=== PATIENT | female | born 1995 | race Caucasian/White ===

== ENCOUNTER 2025-01-28 17:28 | Outpatient (CLI) | payer BC, MEDICAID, SELFPAY ==
--- NOTE | 2025-01-28 17:42 | XR_ITS ---
Examination: Biophysical profile, ultrasound Date and time of exam: January 28, 2025 1746 hrs. Indications: Diagnosis gestational diabetes Technique: Multiple transabdominal sonographic images of the pelvis abdomen obtained. Attention is directed to the breathing movement, gross body movement, amniotic fluid volume and tone. Findings: Amniotic fluid index 4.5 cm Total biophysical profile is 6of 8. breathing movement is 2. Gross body movement is 2. tone is 2. Qualitative amniotic fluid volume is 0 Impression: Biophysical profile is 6 of 8.
[2025-01-28 18:21] VITALS: BP 134/87; PULSE 71
[2025-01-28 18:26] VITALS: BP 134/87; PULSE 71; RESP 17; RESP 99; TEMP 36.6; BMI 39.5
[2025-01-28 18:36] VITALS: BP 136/88; PULSE 65
[2025-01-28 18:43] VITALS: BP 133/82; PULSE 66
== END 2025-01-28 19:30 | disposition home or self-care (01) ==
LOC: S4S1 17:36 → S4SX 17:47
PROVIDERS: Referring Provider Obstetrics & Gynecology; Visit Provider Orthopaedic Surgery Adult Reconstructive Orthopaedic Surgery
DX: O24.419 Gestational diabetes mellitus in pregnancy, unspecified control (principal); Z3A.37 37 weeks gestation of pregnancy
CPT/HCPCS: 59025; 76819

== ENCOUNTER 2025-01-29 17:03 | Outpatient (CLI) | payer OTHER, MEDICAID, SELFPAY ==
--- NOTE | 2025-01-29 17:16 | XR_ITS ---
Examination: Biophysical profile, ultrasound Date and time of exam: January 29, 2025 1731 hrs. Indications: Diagnosis gestational diabetes Technique: Multiple transabdominal sonographic images of the pelvis abdomen obtained. Attention is directed to the breathing movement, gross body movement, amniotic fluid volume and tone. Findings: Amniotic fluid index 8.8 cm Total biophysical profile is 8 of 8. breathing movement is 2. Gross body movement is 2. tone is 2. Qualitative amniotic fluid volume is 2 Impression: Biophysical profile is 8 of 8.
[2025-01-29 18:21] VITALS: BP 131/72; PULSE 80; RESP 18; RESP 99; TEMP 36.7
== END 2025-01-29 18:15 | disposition home or self-care (01) ==
LOC: S4S1 17:06 → S4SX 17:08
PROVIDERS: Referring Provider Obstetrics & Gynecology; Visit Provider Obstetrics & Gynecology
DX: Z34.83 Encounter for supervision of other normal pregnancy, third trimester (principal); Z36.9 Encounter for antenatal screening, unspecified; Z3A.37 37 weeks gestation of pregnancy
CPT/HCPCS: 59025; 76819

== ENCOUNTER 2025-02-06 09:56 | Outpatient (RCR) | payer MEDICAID, SELFPAY ==
--- NOTE | 2025-02-06 10:15 | XR_ITS ---
Examination: Biophysical profile, ultrasound Date and time of exam: February 06, 2025 1024 hours INDICATIONS: Diagnosis gestational diabetes Technique: Multiple transabdominal sonographic images of the pelvis abdomen obtained. Attention is directed to the breathing movement, gross body movement, amniotic fluid volume and tone. Findings: Amniotic fluid index 10.1 cm Total biophysical profile is 8 of 8. breathing movement is 2. Gross body movement is 2. tone is 2. Qualitative amniotic fluid volume is 2 Impression: Biophysical profile is 8 of 8.
[2025-02-06 10:37] VITALS: BP 141/76; PULSE 76; RESP 20; TEMP 36.6
[2025-02-06 12:26] LABS: Collection Type, Urine Clean Catch
[2025-02-06 12:30] LABS: Basophils % (Auto) 0 % (0-2.5); Eosinophils # (Auto) 0.1 Thou/mm3 (0.0-0.5); Eosinophils % (Auto) 1 % (0-10); Hematocrit 35.4 % (36.0-46.0); Hemoglobin 12.4 g/dL (12.0-16.0); Immature Granulocytes % (Auto) 1 % (0-0); Lymphocytes # (Auto) 1.9 Thou/mm3 (1.0-4.8); Lymphocytes % (Auto) 21 % (10-50); Mean Corpuscular Hemoglobin 30.8 pg (25.0-35.0); Mean Corpuscular Volume 88 fL (80-100); Monocytes # (Auto) 0.7 Thou/mm3 (0.0-0.8); Monocytes % (Auto) 8 % (0-12); Neutrophils # (Auto) 6.4 Thou/mm3 (1.8-7.7); Neutrophils % (Auto) 69 % (37-80); Nucleated Red Blood Cell % 0 /100 WBC (0); Platelet Count 199 Thou/mm3 (140-440); RDW Standard Deviation 41.1 fL (36.4-46.3); Red Blood Count 4.02 Miln/mm3 (4.00-5.20); White Blood Count 9.3 Thou/mm3 (3.6-11.0)
[2025-02-06 12:38] LABS: Bacteria,Urine Rare; Bilirubin,Urine Negative (Negative); Blood,Urine Negative (Negative); Clarity,Urine Clear (Clear/Hazy); Color,Urine Lt-Yellow (Lt Yel-Yel); Glucose, Urine 2+ (Negative); Ketones,Urine Negative (Negative); Leukocyte Esterase,Urine Positive (Negative); Nitrite,Urine Negative (Negative); PH,Urine 6.5 (5.0-7.0); Protein,Urine Negative (Neg - Trace); RBC,Urine 2 /hpf (0-3); Specific Gravity,Urine 1.012 (1.001-1.035); Squamous Epithelial Cell,Urine 5 /hpf (0-5); Urobilinogen,Urine Negative mg/dL (0.0-1.0); WBC,Urine 3 /hpf (0-5)
[2025-02-06 12:44] LABS: Creatinine,Random Urine 81 mg/dL (30-125); Protein Total, Random Urine 17 mg/dL (1-14)
[2025-02-06 12:47] LABS: Fibrinogen 409 mg/dL (175-375); INR 0.9 (0.9-1.3); Partial Thromboplastin Time 25.9 Seconds (22.0-36.0); Prothrombin Time 10.1 Seconds (9.0-12.2)
[2025-02-06 12:56] LABS: Alanine Aminotransferase < 7 U/L (10-49); Albumin, Serum 3.8 gm/dL (3.5-5.0); Albumin/Globulin Ratio 1.5 (1.2-2.2); Alkaline Phosphatase 99 U/L (46-116); Anion Gap 7 (7-16); Aspartate Amino Transferase 12 U/L (0-34); BUN/Creatinine Ratio 10 Ratio (12-20); Bilirubin,Total 0.4 mg/dL (0.3-1.2); Blood Urea Nitrogen 6 mg/dL (9-23); Calcium 9.3 mg/dL (8.3-10.6); Calcium (Corrected) 9.5 mg/dL (8.5-10.1); Chloride 108 mMol/L (98-107); Creatinine (Component) 0.6 mg/dL (0.6-1.3); Globulin 2.5 gm/dL (2.3-3.5); Glucose 90 mg/dL (74-106); Osmolality,Calculated 273 (275-295); Potassium 4.1 mMol/L (3.4-5.1); Sodium 138 mMol/L (136-145); Total Protein 6.3 gm/dL (5.7-8.2); Uric Acid 2.9 mg/dL (3.1-7.8); eGFR > 60 See Note
== END 2025-02-06 23:59 | disposition home or self-care (01) ==
LOC: S4S1 09:56
PROVIDERS: Obstetrics & Gynecology; PCP Family Medicine; Referring Provider Student in an Organized Health Care Education/Training Program; Visit Provider Student in an Organized Health Care Education/Training Program
DX: O24.410 Gestational diabetes mellitus in pregnancy, diet controlled (principal); Z3A.38 38 weeks gestation of pregnancy
CPT/HCPCS: 36415; 59025; 76819; 80053; 81001; 82570; 84156; 84550; 85025; 85384; 85610; 85730

== ENCOUNTER 2025-02-10 07:33 | Inpatient (IN) | payer BC, MEDICAID, SELFPAY ==
[2025-02-10] VITALS (16 sets, daily range): BP systolic 0–180; BP diastolic 0–89; PULSE 61–77; RESP 16–18; TEMP 36.6–36.8; O2SAT 98–99; BMI 39.2
[2025-02-10] MEDS: MISOPROSTOL 50 mCg TABLET PO ×4 (09:13→22:02)
[2025-02-10 09:28] LABS: Basophils % (Auto) 0 % (0-2.5); Eosinophils # (Auto) 0.1 Thou/mm3 (0.0-0.5); Eosinophils % (Auto) 1 % (0-10); Hematocrit 35.7 % (36.0-46.0); Hemoglobin 12.6 g/dL (12.0-16.0); Immature Granulocytes % (Auto) 1 % (0-0); Immature Granulocytes Auto 0.08 Thou/mm3 (0.00-0.00); Lymphocytes # (Auto) 2.4 Thou/mm3 (1.0-4.8); Lymphocytes % (Auto) 23 % (10-50); Mean Corpuscular HGB Conc 35.3 g/dl (31.0-37.0); Mean Corpuscular Hemoglobin 30.6 pg (25.0-35.0); Mean Corpuscular Volume 87 fL (80-100); Monocytes # (Auto) 0.8 Thou/mm3 (0.0-0.8); Monocytes % (Auto) 8 % (0-12); Neutrophils % (Auto) 68 % (37-80); Nucleated Red Blood Cell % 0 /100 WBC (0); Platelet Count 227 Thou/mm3 (140-440); RDW Standard Deviation 40.8 fL (36.4-46.3); Red Blood Count 4.12 Miln/mm3 (4.00-5.20); White Blood Count 10.3 Thou/mm3 (3.6-11.0)
[2025-02-10 09:59] LABS: Alanine Aminotransferase < 7 U/L (10-49); Albumin/Globulin Ratio 1.6 (1.2-2.2); Alkaline Phosphatase 108 U/L (46-116); Anion Gap 13 (7-16); Aspartate Amino Transferase 14 U/L (0-34); BUN/Creatinine Ratio 13 Ratio (12-20); Bilirubin,Total 0.4 mg/dL (0.3-1.2); Blood Urea Nitrogen 9 mg/dL (9-23); Calcium 8.8 mg/dL (8.3-10.6); Calcium (Corrected) 8.8 mg/dL (8.5-10.1); Chloride 109 mMol/L (98-107); Creatinine (Component) 0.7 mg/dL (0.6-1.3); Estimated Creatinine Clearance 146.5 mL/min (>60); Globulin 2.5 gm/dL (2.3-3.5); Glucose 169 mg/dL (74-106); Osmolality,Calculated 285 (275-295); Potassium 3.6 mMol/L (3.4-5.1); Sodium 142 mMol/L (136-145); Total Protein 6.5 gm/dL (5.7-8.2); Uric Acid 3.7 mg/dL (3.1-7.8); eGFR > 60 See Note
[2025-02-10 10:06] LABS: Syphilis Nonreactive (Nonreactive)
[2025-02-10 10:12] LABS: Fibrinogen 415 mg/dL (175-375); INR 0.9 (0.9-1.3); Partial Thromboplastin Time 26.6 Seconds (22.0-36.0); Prothrombin Time 10.1 Seconds (9.0-12.2)
--- NOTE | 2025-02-10 10:13 | PD.LDHP ---
Documentation for date of: 02/10/25 OB Labor/Induct. HPI History of Present Illness Chief complaint: Induction of labor for gestational diabetes, obesity and hypertension : 3 Para: 0 Term pregnancies: 0 pregnancies: 0 Living children: 0 History of Abortions: Spontaneous and Elective: 2 History of Vaginal deliveries: 0 History of sections: No History of : No ZOHAIB: 02/17/25 Gestational Age (weeks): 39 Gestational Age (days): 0 Indication for induction: medical complication (Obesity chronic hypertension gestational diabetes not on meds) History of present illness: The patient is a 29-year-old -0-2-0 history of early miscarriage x 2 with all care uncomplicated with [facility]. Patient has borderline blood pressure issues and is gestational diabetic diet controlled. Her BMI is 40. She presents for a scheduled induction of labor at 39 weeks. History of Present Dating criteria: LMP confirmed by 1st trimester US Adequate Care: Yes Ultrasounds: normal mid trimester US Obstetrical complications: gestational diabetes, gestational hypertension and other (Maternal morbid obesity with BMI of 40) Medical complications: none Labs Maternal Blood Type: A Pos Labs: Negative: RPR, Hepatitis B, Rubella Titre, HIV, Chlamydia, Gonorrhea and Group Beta Strep Past Medical History Surgical History SURGICAL: Negative Section Meds Home Medications and Allergies Allergies Allergy/AdvReac Type Severity Reaction Status Date / Time sertraline Allergy Unknown Verified 02/10/25 08:23 OB Exam Physical Exam Vital signs: Temp Pulse Resp BP Pulse Ox 98.1 F 77 18 133/74 H 99 02/10/25 07:30 02/10/25 08:00 02/10/25 07:30 02/10/25 08:00 02/10/25 07:30 Routine Abdominal Exam Abdominal: Present soft Detailed Labor and Delivery Exam Dilation (cm): 1-2 Effacement (%): 50 Cervix position: posterior station: -3 Consistency: medium Presentation: On US Membranes: intact monitor accelerations: 15x15 monitor decelerations: None group home variability: Moderate (11-25) Contraction frequency (min): Rare Tachysystole: No Contraction intensity: Mild OB Results Labs 02/10/25 08:00 02/10/25 08:00 Labs: Short CBC 02/10/25 Range/Units 08:00 WBC 10.3 (3.6-11.0) Thou/mm3 Hgb 12.6 (12.0-16.0) g/dL Hct 35.7 L (36.0-46.0) % Plt Count 227 (140-440) Thou/mm3 BMP 02/10/25 08:00 Sodium 142 Potassium 3.6 Chloride 109 H Carbon Dioxide 20.0 BUN 9 Creatinine 0.7 Glucose 169 H Calcium 8.8 Liver Function 02/10/25 Range/Units 08:00 Total Bilirubin 0.4 (0.3-1.2) mg/dL AST 14 (0-34) U/L ALT < 7 L (10-49) U/L Alkaline Phosphatase 108 (46-116) U/L Albumin 4.0 (3.5-5.0) gm/dL OB Assessment & Plan Assessment and Plan (1) Supervision of high risk in third trimester: Status: Acute Assessment and plan: For induction of labor (2) Maternal obesity syndrome in third trimester: Status: Acute (3) Chronic hypertension during , antepartum: Status: Acute (4) Gestational diabetes mellitus (GDM): Status: Acute Assessment and plan: Check blood sugars every 4 hours, gestational diet Additional Plan Induction method: per misoprostol protocol Plan: induction (4) Gestational diabetes mellitus (GDM) Qualifiers: Gestational diabetes mellitus control: diet-controlled Trimester: third trimester Qualified Code(s): O24.410 - Gestational diabetes mellitus in , diet controlled
[2025-02-10 10:19] LABS: Collection Type, Urine Clean Catch
[2025-02-10 10:44] LABS: Bilirubin,Urine Negative (Negative); Blood,Urine Negative (Negative); Clarity,Urine Clear (Clear/Hazy); Color,Urine Yellow (Lt Yel-Yel); Glucose, Urine 3+ (Negative); Ketones,Urine Trace (Negative); Leukocyte Esterase,Urine Positive (Negative); Nitrite,Urine Negative (Negative); PH,Urine 6.5 (5.0-7.0); Protein,Urine Trace (Neg - Trace); RBC,Urine 2 /hpf (0-3); Specific Gravity,Urine 1.024 (1.001-1.035); Squamous Epithelial Cell,Urine 2 /hpf (0-5); Urobilinogen,Urine Negative mg/dL (0.0-1.0); WBC,Urine 4 /hpf (0-5)
[2025-02-10 11:21] LABS: Creatinine,Random Urine 146 mg/dL (30-125); Protein Total, Random Urine 22 mg/dL (1-14)
[2025-02-11] VITALS (201 sets, daily range): BP systolic 0–143; BP diastolic 0–87; PULSE 52–133; RESP 16–19; TEMP 36.1–36.8; O2SAT 80–100
[2025-02-11] MEDS: DINOPROSTONE 10 MG VAG.SUPP VAGINAL (02:37)
--- NOTE | 2025-02-11 08:44 | PD.LDPN ---
Documentation for date of: 02/11/25 OB Labor Progress Note Pain Control Comments: G-3, P-0 WITH DIET CONTROL GDM AND GESTATIONAL HYPERTENSION NOTED AT 35 WEEKS, NO MEDICATION. ADMITTED FOR LABOR INDUCTION, CERVICAL RIPENING WITH CYTOTEC 50 MCG X 4 AND CERVIDIL STARTED 02:00 FEBRUARY 11. IRREGULAR MILD CONTRACTION 5 MINUTES. FHR = CATEGORY ONE PATTERN WILL RECHECK AT ~ 14:00 FOR REMOVAL OF CERVIDIL Pelvic Exam Dilation (cm): 2.5 Effacement (%): 70 station: -3 Amniotic membrane status: Intact Contractions Monitor mode: External Contraction frequency: 2-3 Contraction pattern: Coupling Contraction intensity: Moderate Status status: Category l
--- NOTE | 2025-02-11 09:49 | XR_ITS ---
Examination: age Limited TECHNIQUE: Limited transabdominal sonographic images pelvis Exam date and time: February 11, 2025 1058 hours INDICATIONS: Preop labor induction today, unknown weight. FINDINGS: Viable intrauterine gestation Estimated weight 3322 g Estimated age 38 weeks 1 day Cardiac motion 150 BPM IMPRESSION: Viable intrauterine gestation Estimated weight 3322 g
[2025-02-11] MEDS: Ampicillin Inj 2,000 MG in SODIUM CHLORIDE 0.9% (POP) 100 ML 200 MG IV (10:33)
[2025-02-11] MEDS: OXYTOCIN in NS 30 units 30 UNIT/500 ML BAG IV (10:36)
--- NOTE | 2025-02-11 12:37 | PD.LDPN ---
Documentation for date of: 02/11/25 OB Labor Progress Note Pain Control Pain control: tolerating well Pelvic Exam Dilation (cm): 2.5 Effacement (%): 70 station: -1 Amniotic membrane status: Intact Contractions Monitor mode: External Contraction frequency: 2-4 Contraction pattern: Coupling Contraction intensity: Mild Status status: Category l Assessment and Plan Assessment: induction ongoing Plan OB labor note: begin Pitocin augmentation Comments: Cervidil came out Start pitocin per protocol Anticipate
[2025-02-11] MEDS: RINGERS LACTATED 1000 ML 1,000 ML 100 ML IV (19:13)
--- NOTE | 2025-02-11 20:19 | PD.LDPN ---
Documentation for date of: 02/11/25 OB Labor Progress Note Pain Control Comments: G-3, P-O WITH GDM FOR INDUCTION OF LABOR. EFW =3250 GRAMS PER SONOGRAM TODAY. GBS COVERAGE WITH AMPICILLIN STARTED. OXYTOCIN AT 4 MIU AND CONTRACTIONS 3 MINUTES INTERVAL, DURATION 50 TO 60 SECONDS, MILD INTENSITY. LAST CERVICAL EXAM SHOWED DILATION 2.5 CM. FHR = CATEGORY ONE PATTERN. NOT NEEDING PAIN MEDICATION.WILL RESUME INTRAPARTUM AMPICILLIN WHEN CERVIX 4 CM DILATED Pelvic Exam Dilation (cm): 2.5 Effacement (%): 70 station: -1 Amniotic membrane status: Intact Contractions Monitor mode: External Contraction frequency: 2-4 Contraction pattern: Coupling Contraction intensity: Mild Status status: Category l
[2025-02-12] VITALS (332 sets, daily range): BP systolic 100–196; BP diastolic 51–108; PULSE 56–129; RESP 14–19; TEMP 36.5–36.9; O2SAT 85–100
--- NOTE | 2025-02-12 01:36 | PD.LDPN ---
Documentation for date of: 02/12/25 OB Labor Progress Note Pain Control Pain control: tolerating well Comments: CONTRACTION REGULAR, FHR= CATEGORY ONE PATTERN, OXYTOCIN AT 8 MIU. CERVIX 3 CM LAST EXAM PER RN Pelvic Exam Dilation (cm): 3 Effacement (%): 50 station: -1 Amniotic membrane status: Intact Contractions Monitor mode: External Contraction frequency: 2-3 Contraction pattern: Coupling Contraction intensity: Mild Status status: Category l Assessment and Plan Pitocin rate (mU/min): 8 Assessment: induction ongoing
[2025-02-12] MEDS: RINGERS LACTATED 1000 ML 1,000 ML 100 ML IV ×3 (03:15→17:06)
[2025-02-12] MEDS: Ampicillin Inj 1,000 MG in SODIUM CHLORIDE 0.9% (Popper) 50 ML 50 MG IV ×4 (04:46→17:12)
--- NOTE | 2025-02-12 05:55 | PD.LDPN ---
Documentation for date of: 02/12/25 OB Labor Progress Note Pain Control Pain control: tolerating well Pelvic Exam Dilation (cm): 2 Effacement (%): 75 station: -2 Amniotic membrane status: Intact Comments: AROM = CLEAR FLUID Contractions Monitor mode: External Contraction frequency: 3-5 Contraction duration: 60 Contraction phase: Contraction Contraction intensity: Mild Status status: Category l Assessment and Plan Pitocin rate (mU/min): 11 Assessment: induction ongoing Plan OB labor note: continuous present management Comments: RESUMED INTRAPARTUM ANTIBIOTICS
[2025-02-12] MEDS: fentaNYL CIT INJ 50 mCg/ML AMP 2ML 100 MCG IV (06:35)
--- NOTE | 2025-02-12 10:30 | PC.NURSE ---
IUPC/FSE placed @9242
--- NOTE | 2025-02-12 12:56 | PC.NURSE ---
(late entry 12:15) Pitocin stopped due to prolonged decelerations. Patient repositioned from left side to the right side, Dr. Schwab notified, order received from MD to restart pitocin at 13:15 at half the dose. Pitocin was running at 15mu/hr when it was stopped. Original IV infiltrated, Stefano Saxena CRNA placed new IV in the right forearm, new IV flushed site intact. Pitocin line disconnected from main line, LR running at 100ml/ hour. Pt currently on right side. FSE was replaced by charge nurse Rosalina Cerda RN, IUPC flushed and zeroed.
[2025-02-12] MEDS: OXYTOCIN in NS 30 units 30 UNIT/500 ML BAG IV (13:47)
[2025-02-12] MEDS: ONDANSETRON INJ 2 MG/ML INJ 2 ML 4 MG IV (15:15)
--- NOTE | 2025-02-12 16:32 | PC.NURSE ---
pt bending arm when blood pressure cuff inflated, patient holding emesis bag reports mild nausea
[2025-02-12] MEDS: LABETALOL INJ 5 MG/ML VIAL 20 ML 20 MG IVP (16:53)
--- NOTE | 2025-02-12 17:53 | PC.NURSE ---
(late entry) 1630 patient complaining of severe pain with contractions, stated that she pressed the epidural button with no relief. Blue Garcia FURNACE MECHANIC notified @ 1361. arrived on the unit at 5148
--- NOTE | 2025-02-12 18:20 | PC.NURSE ---
prolonged decel noted on strip, pitocin stopped and disconnected from main line, 250cc IV bolus started. Dr. Schwab notified
--- NOTE | 2025-02-12 18:30 | PC.NURSE ---
RN spoke with Dr. Schwab after MD reviewed strip. order given to restart pitocin at 1900 at 2 units/hr. RN to perform SVE at [address] Schwab with exam.
--- NOTE | 2025-02-12 18:45 | PC.NURSE ---
Dr Schwab notified of prolonged decels, pitocin still discontinued, patient placed in right lateral position
[2025-02-12] MEDS: AZITHROMYCIN 250 MG TABLET 1000 MG PO (18:57)
[2025-02-12] MEDS: CITRIC ACID/SODIUM CITR 15 ML UDC (BICITRA) 30 ML PO (19:11)
[2025-02-12] MEDS: ceFAZolin/D5W 2 GM IV 2 GM/100 ML BAG IV (19:12)
[2025-02-12] MEDS: FAMOTIDINE INJ 10 MG/ML VIAL 2 ML 20 MG IV (19:12)
[2025-02-12] MEDS: METOCLOPRAMIDE INJ 5 MG/ML VIAL 2 ML 10 MG IVP (19:12)
--- NOTE | 2025-02-12 19:30 | PD.LDPN ---
Documentation for date of: 02/12/25 OB Labor Progress Note Pain Control Comments: epidural Pelvic Exam Dilation (cm): 6-7 Effacement (%): 90 station: +1 Amniotic membrane status: Ruptured Contractions Monitor mode: Internal Contraction frequency: 2-3 Contraction pattern: Coupling Contraction phase: Contraction Contraction intensity: Moderate Status status: Category ll Assessment and Plan Comments: This patient is a admitted 3 days ago for IOL for CHTN GDM diet controlled. Amor has been given cervidil, cytotec and was started on pitocin today morning after AROM done by concrete float maker provider. I started this patinets care today at 7.00 am and I was signed out that she is 2cm , ruptured on pitocin and with reassuring status. No sugars checks were ordered until this point. Orders were given for 4 hourly checks. At around 12.30 pm after [facility] amor had epidural bolus , The baby had a prolonged deceleration , likley from BP alteration.Position changes done and pitocin was shut off. After recovery , pitocin was restarted . There were intermittently associated deceleration however were resolving by resuscitation. I saw amor at 5 pm. Amor just had another prolonged decleration and baby was recovering after position change , pitocin was turned off. I checked her she was 6 cm 90%, caput+, INTERNALS WERE PLACED orders were given to restart pitocin and plan was to recheck abot 8.30( 5-6 hours from when she was called 6 cm by RN) I was called by [facility] RN, about kayley baby having a prolonged deceleration AT 6.30 PM. FHT review showed >50% contraction with late decelration , inspite of pitocin not getting started Bedside amor is still 6-7cm at 7.15. Primary Csectyion was called for category 2 FHT Azithromycin given
[2025-02-12] MEDS: OXYTOCIN in NS 20 units 20 UNIT/1,000 ML BAG 125 UNIT IV (21:08)
--- NOTE | 2025-02-12 22:00 | ESOP_ITS ---
Operative Note - TUBE OPERATOR Procedure Date of procedure: 02/12/25 Procedure Performed: Primary low transverse Csection Indication: category 2 FHT Pre-Op diagnosis: Same Post-Op diagnosis: same Anesthesia type: Spinal Procedure description: Informed consent was obtained and the patient was taken to the operating room.? Identity was confirmed by double identifiers and she was placed on the operating table.The abdomen and perineum were prepped in the usual sterile fashion and a Keita catheter was placed to continuous drainage.? Sterile drapes were applied.??A Pfannenstiel skin incision was made with a scalpel and carried to the subcutaneous fat up to the rectus fascia.? The rectus fascia was incised on either side of the midline and the incisions were extended bilaterally.? The fascia was gently dissected off the ventral surface of the rectus muscle both superiorly and inferiorly. Carefully a peritioneal window created hysterotomy incision made and extended bluntly with finger. Rupture of membranes revealed clear fluid. The baby was found vertex presentation and was delivered via vertex. Umbilical cord , was doubly clamped, divided and the infant was handed over to the waiting team. The placenta delivered by controlled cord traction . The interior of the uterus was now thorougly cleaned of all blood and debris and membranes.?The? hysterotomy was closed using 0 vicryl suture in double layers. Once the repair was completed the hysterotomy was inspected, was noted to be adequately hemostatic. Then the rectus fascia was repaired using PDS 0 in a running fashion.? The subcutaneous layer was now, approximated with 3-0 vicryl in double layers.? All bleeding points were cauterized using the Bovie.?The skin was closed using 4-0 Monocryl in a subcuticular fashion.? The skin was cleaned and a sterile dressing was applied. The patient was now un draped, the abdomen and back were thoroughly cleaned and she was now transferred to the recovery room in a stable Estimated blood loss (ml): 400 Surgical staff Operation Date: 02/12/25 19:40 Case Staff HOSPICE SPIRITUAL CARE COORDINATOR: Lauri Garcia RN First Assistant: Esthela Buckley Diagnosis Problem List Completed Was Problem List Reviewed/Reconciled?: Yes
--- NOTE | 2025-02-12 22:04 | OBDSUM_ITS ---
Data ([place]) Data Hx Section: No : 3 Term: 0 : 0 Livin Abortions: Spontaneous & Theraputic: 2 Delivery Data ([place]) Labor Data Initiation of labor: Induction Induction/Augmentation Agent: Cytotec-PO, Cervidil and Pitocin ROM date: 02/12/25 ROM time: 05:50 Amniotic membrane rupture type: Artificial Amniotic fluid description: Clear Delivery Data Brice delivery date: 02/12/25 delivery time: 19:57 Gestational age (weeks): 39 Gestational age (days): 2 Placenta delivery date: 02/12/25 Placenta delivery time: 19:57 Delivered by: Dr. Schwab Delivery nurse: Ayana Samayoa nurse: [email or web address] Lead Burner Supervisor at delivery: No Support person(s) at delivery: - James Other staff at delivery: TIRE STRIPPER: James Saxena Scrub: Nato Orourke Assist: Esthela PATEL Estimated blood loss (ml): 400 Brice Data ([place]) Data 's gender: Female Identification band number: [id number] weight (gms): 2970 g Weight (pounds): 6 lbs and 8.8 ozs length: 51.5 cm 1 minute: 8 5 minutes: 9
[2025-02-13] VITALS: BP 121/60; PULSE 76; RESP 16; TEMP 36.8; O2SAT 96
[2025-02-13 01:59] LABS: Basophils % (Auto) 0 % (0-2.5); Eosinophils % (Auto) 0 % (0-10); Hematocrit 31.1 % (36.0-46.0); Hemoglobin 10.8 g/dL (12.0-16.0); Immature Granulocytes % (Auto) 1 % (0-0); Immature Granulocytes Auto 0.09 Thou/mm3 (0.00-0.00); Lymphocytes # (Auto) 1.5 Thou/mm3 (1.0-4.8); Lymphocytes % (Auto) 10 % (10-50); Mean Corpuscular HGB Conc 34.7 g/dl (31.0-37.0); Mean Corpuscular Hemoglobin 30.3 pg (25.0-35.0); Mean Corpuscular Volume 87 fL (80-100); Monocytes % (Auto) 6 % (0-12); Neutrophils # (Auto) 13.1 Thou/mm3 (1.8-7.7); Neutrophils % (Auto) 83 % (37-80); Nucleated Red Blood Cell % 0 /100 WBC (0); Platelet Count 169 Thou/mm3 (140-440); RDW Standard Deviation 41.3 fL (36.4-46.3); Red Blood Count 3.56 Miln/mm3 (4.00-5.20); White Blood Count 15.7 Thou/mm3 (3.6-11.0)
[2025-02-13 03:50] VITALS: BP 125/73; PULSE 71; RESP 16; TEMP 36.8; O2SAT 96
[2025-02-13] MEDS: KETOROLAC INJ 30 MG/ML VIAL IVP ×2 (04:10→16:25)
[2025-02-13] MEDS: OXYTOCIN in NS 20 units 20 UNIT/1,000 ML BAG 125 UNIT IV (04:15)
--- NOTE | 2025-02-13 07:58 | ESPR_ITS ---
Subjective Subjective Interval history: Patient is doing well. Denies any pain which is well-controlled with the current medications including [place]'s. Patient blood pressures are very well- controlled. Patient is gestational diabetes and is on diabetic diet. Exam Vital Signs Temp Pulse Resp BP Pulse Ox O2 Del Method 98.3 F 71 16 125/73 96 Room Air 02/13/25 03:50 02/13/25 03:50 02/13/25 03:50 02/13/25 03:50 02/13/25 03:50 02/13/25 03:50 Constitutional Constitutional: no acute distress Routine HEENT Exam Head: Present normocephalic and atraumatic Eye: Present EOMI and PERRL ENT: Present mucous membranes moist Routine Neck Exam Neck: Present supple and trachea midline Routine Respiratory Exam Respiratory: Present chest non-tender, lungs clear, normal breath sounds and no resp distress Routine Cardiovascular Exam Cardiovascular: Present RRR Routine Abdominal Exam Abdominal: Present soft and normoactive bowel sounds Routine Extremities Exam Extremities: Present full ROM Routine Skin Exam Skin: Present intact, dry and warm Routine Neurological Exam Neurological: Present alert, oriented X3 and CN II-XII intact Routine Psychiatric Exam Psychiatric: Present normal affect and normal thought process Objective Labs 02/13/25 01:43 02/10/25 08:00 Labs: Laboratory Results - last 24 hr 02/13/25 01:43 WBC 15.7 H D RBC 3.56 L Hgb 10.8 L Hct 31.1 L MCV 87 MCH 30.3 MCHC 34.7 RDW Std Deviation 41.3 Plt Count 169 D Neut % (Auto) 83 H Lymph % (Auto) 10 [place] % (Auto) 6 Eos % (Auto) 0 Baso % (Auto) 0 Neut # (Auto) 13.1 H Lymph # (Auto) 1.5 [place] # (Auto) 1.0 H Eos # (Auto) 0.0 Baso # (Auto) 0.0 Immature Gran # (Auto) 0.09 H Absolute Nucleated RBC 0.00 Immature Gran % 1 H Nucleated RBC % 0 Assessment & Plan Problem List (1) Supervision of high risk in third trimester: Status: Acute (2) Maternal obesity syndrome in third trimester: Status: Acute (3) Chronic hypertension during , antepartum: Status: Acute (4) Gestational diabetes mellitus (GDM): Status: Acute Assessment Comment Assessment comment: 29-year-old para 1 status post primary low-transverse for category 2 heart tone, postop day 1 Vital signs stable Postop milestones met Keita has been removed, voiding appropriately Plan Comment Plan Comment: Encourage ambulation Continue postop care Anticipate discharge tomorrow Time Spent With Patient Time: Total time spent is greater than 50% in coordination of care (as documented) at patient's floor/unit and/or counseling patient:
[2025-02-13 08:00] VITALS: BP 116/73; PULSE 79; RESP 16; TEMP 37.1
[2025-02-13] MEDS: DOCUSATE SOD 100 MG CAPSULE PO (09:47)
[2025-02-13 12:00] VITALS: BP 118/75; PULSE 78; RESP 16; TEMP 36.4
--- NOTE | 2025-02-13 15:07 | PC.SS ---
SS conducted bedside contact with the patient to address nursing referral indicating patient possessed history of depression.? SS introduced self and role.? SS discussed with patient basis of referral.? SS asked for permission to speak in front of camp attendant and family.? Patient agreed.? Patient confirmed she has anxiety and depression.? Patient states she was not on medication prior to becoming .? Patient states she has had a history with depression since she was 14 years old. ?Patient confirmed she has previously been seen at [facility] behavioral health department. No current psychotropic medication. Patient, currently, has no impairments. Patient has no current thoughts of harming herself or others.? No other history of documented mental health. EDWIGE, James Riley and resides in the home. This is patient?s 1st child. [place], baby girl, was born this morning, . care was [facility] at [facility] Dr. cShwab.? Patient was consistent with . Patient plans on breast feeding. Patient is aligned with [facility], [place] assistance and Food stamps. Patient denies history of drug/alcohol abuse, domestic violence. Patient describes possessing positive support from her family. Patient has all resources to include: car seat, clothing and infant supplies.? sales agent business services provided resources to include:? [employer], Warm Line and community numbers. KENNEL ATTENDANT discussed in further detail emotional support and answered all questions appropriately. No further intervention required at this time, healthcare social worker will be available to address any further concerns. SS updated bedside nurse. Patient to discharge home this morning.
[2025-02-13 16:00] VITALS: BP 121/81; PULSE 79; PULSE 82; RESP 17; TEMP 36.7
[2025-02-13 20:30] VITALS: BP 129/80; RESP 18; TEMP 36.7; O2SAT 98
[2025-02-14 04:15] VITALS: BP 137/78; PULSE 77; RESP 16; TEMP 36.9; O2SAT 99
[2025-02-14] MEDS: IBUPROFEN TAB 400 MG TABLET 800 MG PO (04:19)
[2025-02-14 08:24] VITALS: BP 124/77; PULSE 69; RESP 17; TEMP 36.7; O2SAT 99
[2025-02-14] MEDS: DOCUSATE SOD 100 MG CAPSULE PO (08:54)
[2025-02-14 15:55] VITALS: BP 133/80; PULSE 78; RESP 16; TEMP 36.6; O2SAT 99
[2025-02-14 20:00] VITALS: BP 135/78; PULSE 89; RESP 18; TEMP 36.5; O2SAT 100
--- NOTE | 2025-02-14 21:02 | ESPR_ITS ---
RE: VICK JIMENEZ : 1995 DATE OF SERVICE: 02/14/2025 SUBJECTIVE: Postop day #2, patient denies any problems or complaints. OBJECTIVE: Vital Signs: Stable. She is afebrile. Lungs: Clear to auscultation bilaterally. Heart: Regular rate and rhythm. Abdomen: Incision clear and intact. Extremities: Nontender. LABORATORY DATA: Hemoglobin 10.8. ASSESSMENT: Postoperative day #2, status post delivery. PLAN: Discharge home. Discharge instructions given. Follow up in the office in 1 week. DT: 19:43:18 TT: 21:01:00 Ref: [id number] - TID: [id number]
== END 2025-02-14 20:35 | disposition home or self-care (01) | DRG 788 ==
LOC: S4SX 02-12 20:27 → S4NX 02-12 20:34
PROVIDERS: Student in an Organized Health Care Education/Training Program; Admitting Provider Obstetrics & Gynecology; Visit Provider Specialist
PROC: 10D00Z1 Extraction of Products of Conception, Low, Open Approach (ICD-10-PCS; CPT 59514; principal; 2025-02-12 19:25)
DX: O24.420 Gestational diabetes mellitus in childbirth, diet controlled (principal); Z37.0 Single live birth; O99.214 Obesity complicating childbirth; Z3A.39 39 weeks gestation of pregnancy; E66.01 Morbid (severe) obesity due to excess calories; O13.4 Gestational [pregnancy-induced] hypertension without significant proteinuria, complicating childbirth; O76 Abnormality in fetal heart rate and rhythm complicating labor and delivery; O26.23 Pregnancy care for patient with recurrent pregnancy loss, third trimester
CPT/HCPCS: 36415; 59409; 76815; 80053; 81001; 82570; 84156; 84550; 85025; 85384; 85610; 85730; 86780; 86850; 86900; 86901; 94762; A4649; J0290; J0689; J1885; J2274; J2371; J2405; J2590; J2765; J2795; J3010; J3490; J7030; J7120; A9270; J1920; J2270